=== PATIENT | female | born 1945 | race Caucasian/White ===

== ENCOUNTER → 2020-06-29 | Outpatient (CLI) | payer MEDICARE ==
[~2020-06-29] MED LIST: CYANOCOBAL1000 MCG/1 IM; CYMBALTA60 MG PO; DICYCLOMINE HCL20 MG PO; ECOTRIN81 MG PO; ELIQUIS5 MG PO; FUROSEMIDE40 MG PO; IMODIUM CAP 2 MG2 MG PO; MELATONIN3 MG PO; METFORMIN HCL1000 MG PO; OMEPRAZOLE20 MG PO; SOTALOL120 MG PO; SYSTANE 0.3-0.415 ML EYEBOTH; TYLENOL 8 HOUR650 MG PO; VISTARIL25 MG PO; VITAMIN D21250 MCG PO; ZESTRIL10 MG PO; ZOCOR40 MG PO; ZONEGRAN25 MG PO; ZYLOPRIM 100 M100 MG PO
[2020-06-29 10:23] LABS: HEMOGLOBIN 12.1 gm/dl (12.3-15.3); RED BLOOD COUNT 4.43 M/UL (4.00-5.10); WHITE BLOOD COUNT 5.7 K/UL (4.5-11.0)
[2020-06-29 10:41] LABS: BUN/CREATININE RATIO 23 (0-10)
== END ==
LOC: OPSV2 09:30
PROVIDERS: Orthopaedic Surgery
DX: Z01.812 Encounter for preprocedural laboratory examination (principal); G56.01 Carpal tunnel syndrome, right upper limb; Z88.5 Allergy status to narcotic agent; Z88.8 Allergy status to other drugs, medicaments and biological substances
CPT/HCPCS: 36415; 80048; 85025

== ENCOUNTER 2020-07-04 10:24 | Observation (INO) | payer MEDICARE ==
[~2020-07-04] VITALS: Ht 162.6 cm; Wt 96.6 kg
[~2020-07-04 10:24] MED LIST changes: -IMODIUM CAP 2 MG2 MG PO; -SYSTANE 0.3-0.415 ML EYEBOTH; -ZYLOPRIM 100 M100 MG PO
[2020-07-04 11:20] LABS: HEMOGLOBIN 11.9 gm/dl (12.3-15.3); RED BLOOD COUNT 4.34 M/UL (4.00-5.10); WHITE BLOOD COUNT 6.6 K/UL (4.5-11.0)
[2020-07-04 12:11] LABS: BUN/CREATININE RATIO 19 (0-10)
[2020-07-04] MEDS ORDERED: ZYLOPRIM 100 M100 MG PO (14:09)
[2020-07-04] MEDS ORDERED: IMODIUM CAP 2 MG2 MG PO (16:09)
[2020-07-04] MEDS ORDERED: SYSTANE 0.3-0.415 ML EYEBOTH (16:10)
[2020-07-05 03:06] LABS: HEMOGLOBIN 12.1 gm/dl (12.3-15.3); RED BLOOD COUNT 4.44 M/UL (4.00-5.10)
[2020-07-05 03:07] LABS: WHITE BLOOD COUNT 9.7 K/UL (4.5-11.0)
[2020-07-05 04:44] LABS: BUN/CREATININE RATIO 22 (0-10)
== END 2020-07-05 10:55 | disposition home or self-care (01) ==
LOC: ER1 10:24 → CDU 12:34 → M/S 07-05 03:14
PROVIDERS: Emergency Medicine; ADMIT Internal Medicine
DX: G56.01 Carpal tunnel syndrome, right upper limb (principal); I25.10 Atherosclerotic heart disease of native coronary artery without angina pectoris; I10 Essential (primary) hypertension; K21.9 Gastro-esophageal reflux disease without esophagitis; E78.5 Hyperlipidemia, unspecified; E11.9 Type 2 diabetes mellitus without complications; M19.041 Primary osteoarthritis, right hand; Z86.011 Personal history of benign neoplasm of the brain; Z20.822 Contact with and (suspected) exposure to COVID-19; Z88.1 Allergy status to other antibiotic agents; Z88.5 Allergy status to narcotic agent; Z88.7 Allergy status to serum and vaccine; Z88.8 Allergy status to other drugs, medicaments and biological substances; Z80.9 Family history of malignant neoplasm, unspecified; Z90.49 Acquired absence of other specified parts of digestive tract; Z98.890 Other specified postprocedural states; Z79.899 Other long term (current) drug therapy; Z95.0 Presence of cardiac pacemaker; Z95.1 Presence of aortocoronary bypass graft
CPT/HCPCS: 71045; 80053; 80061; 82550; 82553; 82962; 83036; 83735; 83874; 83880; 84484; 85025; 93005; 96372; 99285; G0378; J0690; J1100; J2001; J2405; J2704; J3420; J7030; J7120; Q0177; U0002

== ENCOUNTER 2020-08-11 09:03 | Emergency (ER) | payer MEDICARE ==
[~2020-08-11 09:03] MED LIST changes: +IMODIUM CAP 2 MG2 MG PO; +SYSTANE 0.3-0.415 ML EYEBOTH; +ZYLOPRIM 100 M100 MG PO
== END 2020-08-11 11:00 | disposition home or self-care (01) ==
LOC: ER1 09:03
DX: S83.91XA Sprain of unspecified site of right knee, initial encounter (principal); E11.9 Type 2 diabetes mellitus without complications; I10 Essential (primary) hypertension; M19.90 Unspecified osteoarthritis, unspecified site; X50.1XXA Overexertion from prolonged static or awkward postures, initial encounter; Y92.009 Unspecified place in unspecified non-institutional (private) residence as the place of occurrence of the external cause; Z88.5 Allergy status to narcotic agent; Z88.1 Allergy status to other antibiotic agents
CPT/HCPCS: 73564; 96372; 99283; J1885

== ENCOUNTER → 2021-09-30 | Outpatient (CLI) | payer MEDICARE | LOC: EXRD 15:00 | DX: M81.0 Age-related osteoporosis without current pathological fracture (principal); M85.852 Other specified disorders of bone density and structure, left thigh | CPT/HCPCS: 77080 ==